=== PATIENT | female | born 1990 | race Caucasian/White ===

== ENCOUNTER 2024-01-12 18:33 | Inpatient (IN) | payer SELFPAY ==
[2024-01-12] MEDS ORDERED: Ibuprofen 800 MG TAB PO PRN (18:56)
[2024-01-12] MEDS ORDERED: HYDROcodone/Acetaminophen 5/325 mg Tablet PO PRN ×2 (18:56→23:46)
[2024-01-12] MEDS ORDERED: Lidocaine 1% (PF) 30 ML VIAL SC PRN (18:56)
[2024-01-12] MEDS ORDERED: Methylergonovine 0.2 MG/ML VIAL IM PRN (18:56)
[2024-01-12] MEDS ORDERED: Misoprostol 200 MCG TAB PR PRN (18:56)
[2024-01-12] MEDS ORDERED: Ondansetron PF 4 MG/2 ML Vial IVP PRN ×2 (18:56→23:46)
[2024-01-12] MEDS ORDERED: fentaNYL 50 mcg/mL 1 mL Vial SLOW IVP PRN (18:56)
[2024-01-12] MEDS ORDERED: hydrALAZINE 20 MG/ML VIAL SLOW IVP PRN ×3 (18:56→22:47)
[2024-01-12] MEDS ORDERED: Tranexamic Acid 1,000 MG/10 ML VIAL IVP PRN (18:56)
[2024-01-12] MEDS ORDERED: Promethazine HCl 25 MG/ML VIAL IM PRN (18:56)
[2024-01-12] MEDS ORDERED: Carboprost 250 MCG/ML AMP IM PRN (18:56)
[2024-01-12] MEDS ORDERED: Oxytocin 30 units/NS 500 ML 500 ML IV SCH (19:00)
[2024-01-12] MEDS ORDERED: Lactated Ringer's 1,000 ML IV SCH (19:00)
[2024-01-12 19:08] LABS: Hematocrit 37.4 % (34.9-44.5); Hemoglobin 12.8 g/dL (12.0-15.5); Mean Corpuscular HGB CONC 34.2 g/dL (32.0-36.0); Mean Corpuscular Hemoglobin 31.8 pg (27.0-33.0); Mean Corpuscular Volume 92.8 fL (81.6-98.3); Mean Platelet Volume 11.1 fL (7.4-10.4); Platelet Count 222 10x3/uL (150-450); RBC Distribution Width 12.6 % (11.5-14.5); Red Blood Cell (RBC) Count 4.03 10x6/uL (3.90-5.03); White Blood Cell (WBC) Count 11.2 10x3/uL (3.5-10.5)
[2024-01-12] MEDS: fentaNYL 50 mcg/mL 1 mL Vial SLOW IVP SCH (19:50)
[2024-01-12] MEDS ORDERED: Bisacodyl 10 MG SUPP PR PRN ×2 (20:32→22:47)
[2024-01-12] MEDS ORDERED: Milk Of Magnesia 30 ML UDCUP PO PRN ×2 (20:32→22:47)
[2024-01-12 21:41] LABS: HIV (1/2) Antibody/Antigen Non-Reactive (NonReactive)
[2024-01-12 21:43] LABS: Hep B Surf Ag - L&D Non-Reactive S/CO (NonReactive); Syphilis Antibody Nonreactive (Nonreactive); Syphilis Antibody Index 0.04 S/CO (<1.00 Non-Reactive)
[2024-01-12] MEDS: Lidocaine 1% (PF) 30 ML VIAL ONE (23:12)
[2024-01-12] MEDS: fentaNYL/Ropivacaine Epidural 0 ML ONE (23:13)
[2024-01-12] MEDS: Oxytocin 30 units/NS 500 ML 500 ML ONE (23:13)
[2024-01-12] MEDS: Docusate 100 MG CAP PO SCH ×2 (23:13→23:14)
[2024-01-12] MEDS ORDERED: diphenhydrAMINE 25 MG CAP PO PRN (23:46)
[2024-01-13 00:22] VITALS: BMI 21.4
[2024-01-13 05:25] LABS: Amphetamine Not Detected (NotDetected); Barbiturates Screen Not Detected (NotDetected); Benzodiazepine Screen Not Detected (NotDetected); Cocaine Metabolite Screen Not Detected (NotDetected); Methadone Not Detected (NotDetected); Methamphetamine Not Detected (NotDetected); Opiate Screen Not Detected (NotDetected); Oxycodone Screen Not Detected (NotDetected); Phencyclidine (PCP) Not Detected (NotDetected); THC/Cannabinoid Screen Not Detected (NotDetected); Tricyclic Screen Not Detected (NotDetected)
[2024-01-13] MEDS: Ibuprofen 800 MG TAB PO SCH (06:38)
[2024-01-13] MEDS: Ferrous Sulfate 325 MG TAB PO SCH (07:56)
[2024-01-13] MEDS: Boostrix 0.5 ML (Tdap) VIAL (>/=7 yrs of age) IM ONE (07:56)
[2024-01-13] MEDS ORDERED: Ferrous Sulfate 325 MG TAB PO SCH (08:00)
[2024-01-13] MEDS: Docusate 100 MG CAP PO SCH (09:21)
[2024-01-13 20:45] VITALS: BP 126/74; TEMP 98.2
== END 2024-01-14 00:40 | disposition home or self-care (01) | DRG 807 ==
LOC: CSHLD/OP 18:33 → CSHLD 18:55 → CSHPP 22:20
PROVIDERS: ADMIT Obstetrics & Gynecology; ATTEND Obstetrics & Gynecology
PROC: 10E0XZZ Delivery of Products of Conception, External Approach (ICD-10-PCS; principal; 2024-01-12)
DX: O42.02 Full-term premature rupture of membranes, onset of labor within 24 hours of rupture (principal); Z37.0 Single live birth; Z3A.39 39 weeks gestation of pregnancy; O34.211 Maternal care for low transverse scar from previous cesarean delivery
CPT/HCPCS: 36415; 80306; 85027; 86762; 86780; 86850; 86900; 86901; 87340; 87389; 88307; 99285; J3010